=== PATIENT | female | born 1990 | race Two or more races ===

== ENCOUNTER 2021-01-04 13:59 | Emergency (ER) | payer OTHER ==
[2021-01-04 14:05] VITALS: BP 118/74
--- NOTE | 2021-01-04 14:32 | ED Physician Documentation ---
History of Present Illness - Stated complaint Stated Complaint: FACE LAC - Chief complaint Chief Complaint: Laceration - History obtained from History obtained from: Patient - History of Present Illness Pain level max: 0 Pain level now: 0 - Additonal information Additional information: 30-year-old female was working at the [employer] today when she sustained a laceration above her left eye. Tetanus up-to-date. Nothing makes it better or worse. No loss of consciousness. Denies any possibility of . Review of Systems Constitutional: denies: Fever, Chills Respiratory: denies: Cough Neurologic: denies: Confused, Headache, LOC PD PAST MEDICAL HISTORY - Past Medical History Past Medical History: Yes Psych: Depression, Anxiety - Past Surgical History Past Surgical History: No - Present Medications Home Medications: Ambulatory Orders Medication Instructions Recorded Confirmed Escitalopram [Lexapro] 10 mg PO DAILY 01/04/21 01/04/21 - Allergies Allergies/Adverse Reactions: Allergies Allergy/AdvReac Type Severity Reaction Status Date / Time No Known Drug Allergies Allergy Verified 01/04/21 14:03 - Living Situation Living Arrangement: reports: At home PD ED PE NORMAL - Vitals Vital signs reviewed: Yes - General General: Alert and oriented X 3, No acute distress, Well developed/nourished - HEENT HEENT: PERRL, EOMI, Moist mucous membranes, Other (small abrasion/laceration above the L eyebrow 0.2cm) - Neck Neck: Supple, no meningeal sign - Derm Derm: Warm and dry - Neuro Neuro: Alert and oriented X 3 - Psych Psych: Normal mood, Normal affect Results - Vitals Vitals: Vital Signs - 24 hr 01/04/21 14:03 Temperature 36.7 C Heart Rate 55 L Respiratory 18 Rate Blood Pressure 118/74 O2 Saturation 98 Oxygen O2 Source Room air Procedures - Laceration (location) L eyebrow Length in cm: 0.2 Wound type: Linear, Superficial Neurovascular status: Sensory intact, Motor intact, Vascular intact Wound preparation: Irrigated copiously NS Skin layer closure: Dermabond Other: Patient tolerated well, No complications, Neurovascular intact, Tetanus UTD PD MEDICAL DECISION MAKING - ED course Complexity details: considered differential, d/w patient ED course: Small laceration repaired with Dermabond. Tolerated well. Tetanus up-to-date. We will have her follow-up with her doctor for further care. Patient counseled regarding signs and symptoms for which I believe and urgent re-evaluation would be necessary. Patient with good understanding of and agreement to plan and is comfortable going home at this time This document was made in part using voice recognition software. While efforts are made to proofread this document, sound alike and grammatical errors may occur. Departure - Departure Disposition: 01 Home, Self Care Clinical Impression: Facial laceration Qualifiers: Encounter type: initial encounter Qualified Code(s): S01.81XA - Laceration without foreign body of other part of head, initial encounter Condition: Good Instructions: ED Laceration Facial Skin Glue Follow-Up: your,doctor as needed [Other] Comments: Keep the wound clean. The glue will fall off on its own. Do not apply ointment as this may dissolve the glue. Discharge Date/Time: 01/04/21 15:09
== END 2021-01-04 15:09 | disposition home or self-care (01) ==
LOC: ED 13:59
DX: S01.81XA Laceration without foreign body of other part of head, initial encounter (principal); W26.8XXA Contact with other sharp object(s), not elsewhere classified, initial encounter; Y92.139 Unspecified place military base as the place of occurrence of the external cause; Y99.1 Military activity
CPT/HCPCS: 12011; 99281; 99282

== ENCOUNTER 2022-08-06 08:49 | Outpatient (CLI) | payer OTHER ==
--- NOTE | 2022-08-06 13:28 | MRI Report ---
PROCEDURE: KNEE WO - LT INDICATIONS: KNEE PAIN TECHNIQUE: Noncontrast sagittal PD fast spin echo and T2 fast spin echo with fat saturation, sagittal 3-D gradie nt sequence with fat saturation; coronal T1 spin echo and PD fast spin echo with fat saturation, and axial PD fast spin echo with fat saturation through the knee. COMPARISON: None. FINDINGS: Image quality: Excellent. Medial and lateral meniscus, ACL and PCL, collateral ligaments, and the extensor mechanism appear wit hin normal limits. There is some mild/moderate chondromalacia involving the patellofemoral joint. Remainder of the artic ular cartilage appears intact. There is what appears to be some reactive marrow edema present within the patella. I do not see any significant knee joint effusion. There is a smaller septated cyst posterior to the P CL. There is mild lateral tilting of the patella present. IMPRESSION: 1. [id number] chondromalacia patellofemoral joint. 2. Lateral tilting of the patella. 3. Reactive bone marrow edema present within the patella 4. Small septated ganglion cyst posterior to the PCL. Reviewed by: Jose Otto MD on 08/06/2022 1:27 PM PST Approved by: Jose Otto MD on 08/06/2022 1:27 PM PST Station ID: [id number]
== END 2022-08-06 08:50 | disposition home or self-care (01) ==
LOC: DI 08:49
DX: M94.262 Chondromalacia, left knee (principal); M67.462 Ganglion, left knee